=== PATIENT | male | born 1980 | race Caucasian/White ===

== ENCOUNTER 2020-11-13 14:34 | Inpatient (IN) ==
[2020-11-13] MEDS ORDERED: Ibuprofen 400 MG TABLET PO PRN (17:36)
[2020-11-13] MEDS ORDERED: Haloperidol Lactate 5 MG/ML VIAL IM PRN (17:36)
[2020-11-13] MEDS ORDERED: *HR* LORazepam 1 MG TABLET PO PRN (17:36)
[2020-11-13] MEDS ORDERED: haloperidoL 5 MG TABLET PO PRN (17:36)
[2020-11-13] MEDS ORDERED: *HR* LORazepam 2 MG/ML VIAL IM PRN (17:36)
[2020-11-14] MEDS: Nicotine 21 MG PATCH.TD24 TD SCH (08:24)
[2020-11-14] MEDS ORDERED: MOM Conc 10 ML UD.LIQ PO PRN (09:14)
[2020-11-14] MEDS ORDERED: Mag Hydrox/Al Hydrox/Simeth 30 ML UDC PO PRN (09:14)
[2020-11-14] MEDS: BuPROPion XL (24 HR) 150 MG TABLET PO SCH (10:16)
[2020-11-14] MEDS: ARIPiprazole 5 MG TABLET PO SCH (10:17)
[2020-11-14] MEDS: hydrOXYzine pamoate 25 MG CAPSULE PO PRN ×2 (10:34→20:13)
[2020-11-14] MEDS: traZODone 50 MG TABLET PO PRN (20:13)
[2020-11-15] MEDS: BuPROPion XL (24 HR) 150 MG TABLET PO SCH (10:20)
[2020-11-15] MEDS: Nicotine 21 MG PATCH.TD24 TD SCH (10:20)
[2020-11-15] MEDS: ARIPiprazole 5 MG TABLET PO SCH (10:20)
[2020-11-15] MEDS: traZODone 50 MG TABLET PO PRN (20:11)
[2020-11-15] MEDS: hydrOXYzine pamoate 25 MG CAPSULE PO PRN (20:11)
[2020-11-16] MEDS: BuPROPion XL (24 HR) 150 MG TABLET PO SCH (09:08)
[2020-11-16] MEDS: Nicotine 21 MG PATCH.TD24 TD SCH (09:08)
[2020-11-16] MEDS: ARIPiprazole 5 MG TABLET PO SCH (09:08)
[2020-11-16 09:15] VITALS: BP 125/80; PULSE 79; TEMP 97.6; O2SAT 99
== END 2020-11-16 17:00 | disposition home or self-care (01) | DRG 885 ==
LOC: EMEROOARM 14:34 → 1ANU 17:33
PROVIDERS: ADMIT Psychiatry & Neurology Psychiatry; ATTEND Psychiatry & Neurology Psychiatry

== ENCOUNTER 2020-11-17 00:11 | Inpatient (IN) ==
[2020-11-17 02:59] LABS: Adenovirus Not Detected (Not Detect); Bordetella Pertussis Not Detected (Not Detect); Chlamydophila pneumoniae Not Detected (Not Detect); Coronavirus 229E Not Detected (Not Detect); Coronavirus HKU1 Not Detected (Not Detect); Coronavirus NL63 Not Detected (Not Detect); Coronavirus OC43 Not Detected (Not Detect); Human Metapneumovirus Not Detected (Not Detect); Human Rhinovirus/Enterovirus Not Detected (Not Detect); Influenza A Subtype 2009 H1 Not Detected (Not Detect); Influenza B Not Detected (Not Detect); Mycoplasma pneumoniae Not Detected (Not Detect); Parainfluenza Virus 1 Not Detected (Not Detect); Parainfluenza Virus 2 Not Detected (Not Detect); Parainfluenza Virus 3 Not Detected (Not Detect); Parainfluenza Virus 4 Not Detected (Not Detect); Respiratory Syncytial Virus Not Detected (Not Detect); SARS-CoV-2 Not Detected (Not Detect)
[2020-11-17] MEDS ORDERED: Acetaminophen 325 MG TABLET PO PRN (03:02)
[2020-11-17] MEDS ORDERED: QUEtiapine Fumarate 25 MG TABLET PO PRN (03:02)
[2020-11-17] MEDS ORDERED: hydrOXYzine pamoate 25 MG CAPSULE PO PRN (03:23)
[2020-11-17] MEDS ORDERED: *HR* LORazepam 1 MG TABLET PO PRN (10:08)
[2020-11-17] MEDS ORDERED: MOM Conc 10 ML UD.LIQ PO PRN (10:08)
[2020-11-17] MEDS ORDERED: *HR* LORazepam 2 MG/ML VIAL IM PRN (10:08)
[2020-11-17] MEDS ORDERED: Mag Hydrox/Al Hydrox/Simeth 30 ML UDC PO PRN (10:08)
[2020-11-17] MEDS ORDERED: Haloperidol Lactate 5 MG/ML VIAL IM PRN (10:08)
[2020-11-17] MEDS ORDERED: haloperidoL 5 MG TABLET PO PRN (10:08)
[2020-11-17] MEDS: BuPROPion XL (24 HR) 150 MG TABLET PO SCH (14:19)
[2020-11-17] MEDS: ARIPiprazole 5 MG TABLET PO SCH (14:19)
[2020-11-17] MEDS: Nicotine 21 MG PATCH.TD24 TD SCH (14:22)
[2020-11-17] MEDS ORDERED: traZODone 50 MG TABLET PO PRN (21:00)
[2020-11-18] MEDS: BuPROPion XL (24 HR) 150 MG TABLET PO SCH (08:40)
[2020-11-18] MEDS: ARIPiprazole 5 MG TABLET PO SCH (08:40)
[2020-11-18] MEDS: Nicotine 21 MG PATCH.TD24 TD SCH (08:40)
[2020-11-18 11:38] VITALS: BP 131/87; PULSE 75; TEMP 97.3; O2SAT 99
== END 2020-11-18 20:40 | disposition home or self-care (01) | DRG 885 ==
LOC: EMEROOARM 00:11 → 1ANU 03:03
PROVIDERS: ADMIT Psychiatry & Neurology Psychiatry; ATTEND Psychiatry & Neurology Psychiatry